=== PATIENT | male | born 1980 ===

== ENCOUNTER 2018-10-17 11:34 | Emergency (ER) | payer OTHER ==
[~2018-10-17] VITALS: Ht 180.3 cm; Wt 99.8 kg
[2018-10-17 13:21] VITALS: BP 82/53
[2018-10-17] MEDS ORDERED: LIDOCAINE 1% HCL (LOCAL ANESTH.) INJ 20ML MDV ONE (14:25)
[2018-10-17] MEDS ORDERED: BACITRACIN TOP OINT 1 UD PKG TOP ONE (14:30)
[2018-10-17] MEDS ORDERED: LIDOCAINE 1% (LOCAL ANESTH.) PF 5ml SDV ID ONE (14:30)
== END 2018-10-17 15:25 | disposition home or self-care (01) ==
LOC: ER 11:34
DX: S01.511A Laceration without foreign body of lip, initial encounter (principal); I10 Essential (primary) hypertension; W18.11XA Fall from or off toilet without subsequent striking against object, initial encounter; Y93.89 Activity, other specified; Y92.091 Bathroom in other non-institutional residence as the place of occurrence of the external cause; Y99.8 Other external cause status
CPT/HCPCS: 12011; 70450; 99284; J2001